=== PATIENT | female | born 1970 | race Caucasian/White ===

== ENCOUNTER → 2017-12-08 | Outpatient (CLI) | payer OTHER ==
[2017-12-08 10:59] LABS: ALT 31 U/L (9-52); AST 26 U/L (14-36)
== END | disposition home or self-care (01) ==
LOC: LABWHC1 10:03
PROVIDERS: ATTEND Podiatrist Foot & Ankle Surgery
DX: K74.60 Unspecified cirrhosis of liver (principal)
CPT/HCPCS: 36415; 84450; 84460

== ENCOUNTER → 2018-04-04 | Outpatient (CLI) | payer BC ==
--- NOTE | 2018-04-04 10:07 | MM ---
Reason for exam: screening (asymptomatic). Last mammogram was performed 2 years and 7 months ago. History: Patient is postmenopausal and has history of other cancer at age 17. Family history of breast cancer in mother at age 61 and breast cancer in grandmother. Benign excisional biopsy of the right breast, 1993. Took hormonal contraceptives for 7 years beginning at age 15. Took estrogen for 6 months beginning at age 38. Physical Findings: A clinical breast exam by your physician is recommended on an annual basis and results should be correlated with mammographic findings. MG 3D Screening Mammo W/Cad Bilateral CC and MLO view(s) were taken. Prior study comparison: September 05, 2015, bilateral MG 3d screening mammo w/cad. July 19, 2014, bilateral MG screening mammo w CAD. The breast tissue is extremely dense which could obscure a lesion on mammography. Finding: There is a 7 mm equal density (isodense), oval mass in the upper quadrant, posterior position of the right breast. ASSESSMENT: Incomplete: need additional imaging evaluation, BI-RAD 0 RECOMMENDATION: Special view mammogram of the right breast. If lesion persists on supplemental views, image directed ultrasound is recommended. [facility] will attempt to contact patient to return for supplemental views and ultrasound if indicated.
== END ==
LOC: RADMAMWWP 06:57
PROVIDERS: ATTEND Family Medicine
DX: Z12.31 Encounter for screening mammogram for malignant neoplasm of breast (principal)
CPT/HCPCS: 77063; 77067

== ENCOUNTER → 2018-04-06 | Outpatient (CLI) | payer BC ==
--- NOTE | 2018-04-06 12:22 | MM ---
Reason for exam: additional evaluation requested from abnormal screening. Last mammogram was performed less than 1 month ago. History: Patient is postmenopausal and has history of other cancer at age 17. Family history of breast cancer in mother at age 61 and breast cancer in grandmother. Benign excisional biopsy of the right breast, 1993. Took hormonal contraceptives for 7 years beginning at age 15. Took estrogen for 6 months beginning at age 38. Physical Findings: Nurse did not find any significant physical abnormalities on exam. MG 3D Work Up W/Cad RT XCCL view(s) were taken of the right breast. Prior study comparison: April 04, 2018, bilateral MG 3d screening mammo w/cad. September 05, 2015, bilateral MG 3d screening mammo w/cad. 7mm nodularity in the right breast persists on additional views. These results were verbally communicated with the patient and result sheet given to the patient on 04/06/18. ASSESSMENT: Incomplete: need additional imaging evaluation, BI-RAD 0 RECOMMENDATION: Ultrasound of the right breast.
--- NOTE | 2018-04-06 12:24 | USB ---
Reason for exam: additional evaluation requested from abnormal screening. History: Patient is postmenopausal and has history of other cancer at age 17. Family history of breast cancer in mother at age 61 and breast cancer in grandmother. Benign excisional biopsy of the right breast, 1993. Took hormonal contraceptives for 7 years beginning at age 15. Took estrogen for 6 months beginning at age 38. US Breast Workup Limited RT Right limited breast ultrasound including focal area of concern, retroareolar and axilla demonstrates no cystic or solid lesion seen greater than 0.50cm. Mammographic abnormality presumed benign lymph node. These results were verbally communicated with the patient and result sheet given to the patient on 04/06/18. ASSESSMENT: Negative, BI-RAD 1 RECOMMENDATION: Return to routine screening mammogram schedule for both breasts.
== END | disposition home or self-care (01) ==
LOC: RADMAMWWP 06:54
PROVIDERS: ATTEND Family Medicine
DX: R92.8 Other abnormal and inconclusive findings on diagnostic imaging of breast (principal)
CPT/HCPCS: 77061; 77065

== ENCOUNTER → 2018-05-18 | Outpatient (CLI) | payer BC ==
[2018-05-18 14:11] VITALS: BP 135/77; PULSE 80; RESP 18; TEMP 96.8; BMI 23.3
--- NOTE | 2018-05-18 14:34 | P.GSHP ---
History of Present Illness H&P Date: 05/18/18 Chief Complaint: abnormal mammogram The patient is a 47 year old white female status post bilateral breast mammogram performed on . This revealed a 7 mm equal density oval mass in the upper quadrant in the posterior position of the right breast. She subsequently had a diagnostic mammogram performed of this area followed by an ultrasound. The patient had persistence of the nodularity on the diagnostic mammogram. However an ultrasound of cystic or solid lesions greater than 0.5 cm were identified. The mammographic abnormality was presumed to be a benign lymph node and it was recommended the patient have a repeat bilateral mammogram in 1 year. She has a positive family history of breast caner in a maternal grandmother at 56, and her mother had DCIS at 62, and was diagnosed with bladder cancer at 68. Patient does not feel any nodules in her breast. No nipple discharge or changes. No trauma or infection in the breast. Family History: 1. mother: breast and bladder cancer 2. maternal grandmother: breast cancer Hormonal History: menarche: 14 : 2, 2 children, first at 19, breast fed: one Right ovary and tube removed at approximately 29, then subsequently a total hysterectomy with the left ovary removed for endometriosis BCP: 3 years hormones: none Past Surgical History: 1. Right ovary and tube removed at the age of 29 2. Completion hysterectomy with left ovary removed as well for endometriosis 3. Bilateral foot surgery (bunyon bilateral) 4. Bilateral knee surgery (meniscus surgery) 5. Right hand surgery Past Medical History: none Social History: smoke: none alcohol: rare drugs: none - Constitutional Constitutional: Denies chills, Denies fever - EENT Eyes: denies blurred vision, denies pain Ears: deny: decreased hearing, tinnitus Ears, nose, mouth and throat: Reports headache, Denies sore throat - Breasts Breasts: bilateral: as per HPI - Cardiovascular Cardiovascular: Denies chest pain, Denies shortness of breath - Respiratory Respiratory: Denies cough, Denies 7 - Gastrointestinal Gastrointestinal: Denies abdominal pain, Denies diarrhea, Denies nausea, Denies vomiting - Genitourinary (Female) Genitourinary: Denies dysuria, Denies hematuria - Menstruation Menstruation: Reports post hysterectomy - Musculoskeletal Musculoskeletal: Reports as per HPI - Integumentary Integumentary: Denies pruritus, Denies rash - Neurological Comment: cyst on hand Neurological: Denies numbness, Denies weakness - Psychiatric Psychiatric: Denies anxiety, Denies depression - Endocrine Endocrine: Denies fatigue, Denies weight change - Hematologic/Lymphatic Comment: none - Allergic/Immunologic Allergic/Immunologic: Reports seasonal allergies Past Medical History Past Medical History: No Reported History History of Any Multi-Drug Resistant Organisms: None Reported Past Surgical History: Hysterectomy, Orthopedic Surgery Additional Past Surgical History / Comment(s): two knee and two hand surgery,. rt breast biopsy Past Anesthesia/Blood Transfusion Reactions: No Reported Reaction Past Psychological History: No Psychological Hx Reported Smoking Status: Never smoker Past Alcohol Use History: Occasional Past Drug Use History: None Reported - Past Family History Mother Family Medical History: Cancer, Diabetes Mellitus, Hypertension Additional Family Medical History / Comment(s): bladder cancer Father Family Medical History: Diabetes Mellitus, Hyperlipidemia Medications and Allergies Home Medications Medication Instructions Recorded Confirmed Type Butalb/APAP/Caff 50-325-40Mg 1 tab PO Q4H PRN 05/18/18 05/18/18 History [Fioricet 50-325-40] Ferrous Sulfate [Feosol] 325 mg PO DAILY 05/18/18 05/18/18 History Allergies Allergy/AdvReac Type Severity Reaction Status Date / Time No Known Allergies Allergy Verified 05/18/18 14:14 Surgical - Exam Vital Signs Temp Pulse Resp BP Pulse Ox 96.8 F L 80 18 135/77 100 05/18/18 14:05 05/18/18 14:05 05/18/18 14:05 05/18/18 14:05 05/18/18 14:05 BMI 23.4 - General well developed, well nourished, no distress - Eyes normal ocular movement, no icteric - ENT no hearing loss, no congestion - Neck no masses, trachea midline - Respiratory normal respiratory effort, clear to auscultation - Cardiovascular Rhythm: regular Heart Sounds: normal: S1, S2 - Abdomen Abdomen: soft, non tender, no guarding, no rigid, no rebound - Integumentary tatoo no rash, no abnormal pigmentation - Neurologic no disoriented, no combative - Musculoskeletal normal gait, normal posture - Psychiatric oriented to time, oriented to person, oriented to place, speech is normal, memory intact Breast exam right breast: multipositional exam no masses of concern right axilla: no adenopathy of concern left breast: no masses of concern on multipositional exam left adenopathy: no adenopathy of concern Results mammogram and ultrasound reviewed Assessment and Plan Assessment: Impression: 1. Radiographic abnormality right breast believed to be benign lymph node 2. Fibrocystic breast changes 3. Family history of breast cancer in mother and maternal grandmother, patient states mother was tested for the BRCA1 gene and this was negative. The patient' s sister was also tested for the BRCA1 gene and this was negative Plan: 1. Repeat bilateral mammogram in 1 year 2. Patient to do routine breast exams monthly 3. Follow-up in 1 year for bilateral mammogram and physician exam of the breast may be done here or by marine painter Cc: Dr. Nakul Villa/Les Howard
== END | disposition home or self-care (01) ==
LOC: WWCWWP 13:13
PROVIDERS: ATTEND Surgery
DX: Z53.9 Procedure and treatment not carried out, unspecified reason (principal)

== ENCOUNTER → 2018-07-12 | Outpatient (CLI) | payer BC ==
[2018-07-12 16:41] LABS: HCT 38.1 % (34.0-46.0); HGB 12.2 gm/dL (11.4-16.0); MCH 29.4 pg (25.0-35.0); MCV 91.9 fL (80.0-100.0); Mean Platelet Volume 6.7; Platelet Count 224 k/uL (150-450); RBC 4.15 m/uL (3.80-5.40); WBC 5.8 k/uL (3.8-10.6)
[2018-07-12 16:48] LABS: Anion Gap 7 mmol/L; Blood Urea Nitrogen 29 mg/dL (7-17); Carbon Dioxide 30 mmol/L (22-30); Chloride 104 mmol/L (98-107); Glucose 74 mg/dL (74-99); Potassium 4.2 mmol/L (3.5-5.1); Sodium 141 mmol/L (137-145)
== END | disposition home or self-care (01) ==
LOC: LABPAT 15:27
PROVIDERS: ATTEND Podiatrist Foot & Ankle Surgery
DX: Z01.812 Encounter for preprocedural laboratory examination (principal)
CPT/HCPCS: 36415; 80048; 85027

== ENCOUNTER 2018-08-09 13:07 | Day surgery (SDC) | payer BC ==
[2018-08-03 15:49] VITALS: BMI 23.1
[~2018-08-09 13:07] MED LIST: LACTATED RINGERS 1,000 ML IV SCH; LIDOCAINE 1% 20 ML VIAL (10MG/ML) FOR IV START INTRADERMA PRN; ONDANSETRON 4 MG/2 ML VIAL IVP ONE; Pre Op ABX Message 1 EACH MISC MISCELLANE ONE
[2018-08-09] MEDS ORDERED: BUPIVACAINE (PF) 0.25% 30 ML VIAL SQ ONE ×2 (14:13→15:42)
[2018-08-09] MEDS ORDERED: KETAMINE 10 MG/ML 20 ML VIAL ONE (14:15)
[2018-08-09] MEDS ORDERED: PROPOFOL 10 MG/ML 20 ML VIAL IV ONE (14:15)
[2018-08-09] MEDS ORDERED: LIDOCAINE 1% INJ 10MG/ML (20 ML MDV) ONE (14:15)
[2018-08-09] MEDS ORDERED: fentaNYL (PF) 50 MCG/ML 2 ML AMP ONE (14:15)
[2018-08-09] MEDS ORDERED: MIDAZOLAM 2 MG/2 ML VIAL ONE (14:15)
[2018-08-09] MEDS ORDERED: ceFAZolin IN SWFI 2 GM/20 ML SYRINGE IVP ONE (14:38)
[2018-08-09] MEDS ORDERED: LACTATED RINGERS 1,000 ML IV ONE (15:00)
--- NOTE | 2018-08-09 16:05 | P.OP ---
Date of Procedure: 08/09/18 Preoperative Diagnosis: Hallux abductovalgus deformity right foot Postoperative Diagnosis: Same Procedure(s) Performed: Travis Jon bunionectomy right foot Anesthesia: GETA Surgeon: Harlan Boothe Description of Procedure: On the date of surgery the patient was taken the operating room in good condition placed on the operating table supine position where an IV was started and general anesthetic agents were administered Right foot and ankle were then prepped and draped in usual aseptic manner and over heavy web roll padding an ankle tourniquet was placed above the malleoli of the patient's right ankle the patient's right foot and ankle were then elevated and exsanguinated of blood and after approximately 2 minutes. A time the ankle tourniquet was inflated to approximately 250 mmHg At this time attention was directed to the dorsal aspect of the first metatarsal phalangeal joint of the right foot where an approximately 6-1/2 cm dorsal linear incision was made the incision was deepened via sharp dissection down through the level of the subcutaneous tissue layers all neurovascular structures encountered were identified isolated and were retracted and any bleeding vessels were clamped electrocauterized X was then carried deep down to level Periosteal Structures Overlying the First Metatarsal Phalangeal Joint These Were Incised Utilizing an Inverted L Incision and Underscored and Retracted from the Underlying Bone Capsule and Periosteal Structures Were Also Incised in Line with the Original Skin Incision Overlying the Base of the Proximal Phalanx and Underscored and Retracted from the Underlying Bone. Grafted at This Point in Time Utilizing Oscillating Bone Saw the Hyperostosis Present on the Medial Side of the First Metatarsal Head Was Resected Flush in Line with the Shaft of the First Metatarsal and Removed from the Surgical Site. Throughout the Surgical Procedure Copious Amounts Sterile Saline Solution Was Used To Irrigate the Surgical Site Oscillating Bone Saw Was Then Used To Perform a Transverse V Metatarsal Osteotomy at the Metaphysis Level of the First Metatarsal upon Completion of This Through And Through Osteotomy the Capital Fragment Was Displaced Laterally Impacted Back upon the Alec Created by the Osteotomy Area and 2 Crossing 0.062 K Wires Were Then Used To Fixate the Osteotomy Allograft This Point in Time Attention Was Directed to the Dorsal Aspect of the Proximal Phalanx Where a Dorsal to Plantar Wedge Osteotomy Was Performed in Such a Manner That the [place] Was Directed Laterally Though Care Was Taken Not to Disrupt the Lateral Cortex the Base of the Wedge Was Directed Medially the Encompass Wedge of Bone Measured Approximately 2 Mm at Its Widest Extent and Wedge of Bone Was Removed from the Surgical Site. To Surgical Drill Holes Were Then Fashioned at the Dorsal Medial Side of the Osteotomy in Such a Manner That They Met with Then. Utilizing Double Strength H Monofilament Stainless Steel Wire the Osteotomy Was Fixated and Anatomically Closed in Opposed Position. At This Point in Time Attention Was Directed to the Lateral Side of the Capsule of the First Metatarsal Phalangeal Joint Where a Lateral Capsulotomy Was Performed. At This Point in Time Redundant Capsule on the Medial Side of the First Metatarsal Phalangeal Joint Was Removed Erythema Was Performed. At This Point in Time Parosteal Structures Were Coaptated and Maintained Utilizing Combination of 201 3-0 Vicryl Simple Interrupted Suture Subcutaneous Tissue Layers Were Then Coaptated and Maintained Utilizing 3-0 Vicryl Simple Interrupted Suture and the Skin Was Closed Utilizing 4-0 Nylon Simple Interrupted Suture Proximally 10 ML of 0.25% Plain Marcaine Was Then Given in an Miguel Type Block to the First Ray Complex. Kerlex Fluffs Soaked in Betadine were Then Applied with Four-Inch Andreia and Four-Inch Conformer the Ankle Tourniquet to the Patient's Right Ankle Was Deflated and Adequate Hemostatic Return Was Seen in All Digits the Patient's Right Foot Specifically the Hallux Patient Tolerated the Surgery and Anesthesia Well Was Taken Recovery Room in Good Postoperative Condition
[2018-08-09 16:41] VITALS: TEMP 97
[2018-08-09] MEDS: HYDROmorphone 0.5 MG/0.5 ML SYRINGE IVP PRN ×2 (16:55→17:06)
[2018-08-09] MEDS ORDERED: ONDANSETRON 4 MG/2 ML VIAL IVP ONE (17:23)
[2018-08-09 17:57] VITALS: RESP 16
[2018-08-09] MEDS ORDERED: SCOPOLAMINE 1.5MG/72HR PATCH TRANSDERM ONE (18:24)
[2018-08-09] MEDS ORDERED: PROMETHAZINE INJ 25 MG/ML 1 ML VIAL IVPB ONE (18:26)
[2018-08-09] MEDS ORDERED: PROMETHAZINE INJ 25 MG/ML 1 ML VIAL IM ONE (18:26)
[2018-08-09 18:50] VITALS: BP 127/77; PULSE 56
== END 2018-08-09 19:30 | disposition home or self-care (01) ==
LOC: OR 13:07
PROVIDERS: ATTEND Podiatrist Foot & Ankle Surgery
DX: M20.11 Hallux valgus (acquired), right foot (principal); Z88.5 Allergy status to narcotic agent; G43.909 Migraine, unspecified, not intractable, without status migrainosus; Z79.891 Long term (current) use of opiate analgesic
CPT/HCPCS: 28299; J2250; J2550; J2405; J2001; J3010; J2704; J1170; J0690; 88304; 88311

== ENCOUNTER → 2019-05-10 | Outpatient (CLI) | payer BC ==
--- NOTE | 2019-05-11 13:15 | MM ---
Reason for exam: screening (asymptomatic). Last mammogram was performed 1 year and 1 month ago. History: Patient is postmenopausal and has history of other cancer at age 17. Family history of breast cancer in mother at age 61 and breast cancer in grandmother. Benign excisional biopsy of the right breast, 1993. Took hormonal contraceptives for 7 years beginning at age 15. Took estrogen for 6 months beginning at age 38. Physical Findings: A clinical breast exam by your physician is recommended on an annual basis and results should be correlated with mammographic findings. MG 3D Screening Mammo W/Cad Bilateral CC and MLO view(s) were taken. Prior study comparison: April 06, 2018, right breast MG 3d work up w/cad RT. April 04, 2018, bilateral MG 3d screening mammo w/cad. The breast tissue is extremely dense which could obscure a lesion on mammography. No suspicious abnormality. No significant changes when compared with prior studies. ASSESSMENT: Negative, BI-RAD 1 RECOMMENDATION: Routine screening mammogram of both breasts in 1 year.
== END | disposition home or self-care (01) ==
LOC: RADMAMWWP 06:45
PROVIDERS: ATTEND Family Medicine
DX: Z12.31 Encounter for screening mammogram for malignant neoplasm of breast (principal)
CPT/HCPCS: 77063; 77067

== ENCOUNTER → 2020-02-20 | Outpatient (CLI) | payer BC ==
[2020-02-20 10:47] VITALS: BP 107/66; PULSE 76; RESP 97; TEMP 98.2
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
== END | disposition home or self-care (01) ==
LOC: PNWHC3 10:17
PROVIDERS: ATTEND Anesthesiology
DX: R51 Headache (principal); M54.81 Occipital neuralgia; Z88.5 Allergy status to narcotic agent; Z79.899 Other long term (current) drug therapy
CPT/HCPCS: 99211

== ENCOUNTER 2020-03-25 06:02 | Day surgery (SDC) | payer BC ==
[~2020-03-25 06:02] MED LIST changes: -LIDOCAINE 1% 20 ML VIAL (10MG/ML) FOR IV START INTRADERMA PRN; -ONDANSETRON 4 MG/2 ML VIAL IVP ONE; -Pre Op ABX Message 1 EACH MISC MISCELLANE ONE
[2020-03-25 06:21] VITALS: TEMP 97.2
[2020-03-25] MEDS ORDERED: methylPREDNISolone ACETATE 40 MG/ML 1 ML VIAL ONE (06:53)
[2020-03-25] MEDS ORDERED: MIDAZOLAM 2 MG/2 ML VIAL ONE (06:53)
[2020-03-25] MEDS ORDERED: IOPAMIDOL M200 10 ML VIAL ONE (06:53)
[2020-03-25] MEDS ORDERED: fentaNYL (PF) 50 MCG/ML 2 ML AMP ONE (06:53)
[2020-03-25] MEDS ORDERED: IV FLUID CONTINUATION 850 ML IV ONE (07:04)
--- NOTE | 2020-03-25 07:04 | P.PCN ---
Date of Procedure: 03/25/20 Procedure(s) Performed: Preoperative diagnoses= 1- Left Greater occipital neuralgia. 2-headache Postoperative diagnoses= same as preoperative diagnosis. Procedure= Left Greater occipital nerve block Anesthesia= moderate sedation with Versed 2 mg and fentanyl 50 micrograms . Estimated blood loss=minimal. Procedure indication= the patient had a history of severe chronic neck pain ,and headache, diagnosed with occipital neuralgia exam was positive for severe tenderness over the occipital nerve (Left ), she will be a good candidate occipital nerve block, patient failed conservative management Procedure description= the patient was seen and identified in the preoperative holding area, risks and benefits and alternative of the procedure and possible complications discussed with the patient, and he agreed with the preceding, patient signed the consent, an IV was started, and vital signs were monitored and were stable throughout the procedure, patient was placed in the sitting position or table and the neck area was prepped and draped with a sterile fashion, vital signs were closely monitored during the procedure, 25-gauge needle advanced 1 inch lateral to the occipital protuberance on the Left side, at the location of the Left occipital nerve , then after negative aspiration for heme and CSF and there was no paresthesia during the injection, 5 ml of Robivacaine 0.5% and 40 mg of Depo-Medrol injected after negative aspiration, the needle removed. Patient tolerated the procedure well without any complication, The patient returned to supine position after the back was cleaned and a Band- Aid applied, the patient transported to recovery room in stable condition and he was monitored for 30 minutes before he was discharged home and then patient was reexamined before going home and patient was discharged in stable condition and patient will follow up with the pain clinic in a few weeks.
[2020-03-25 07:13] VITALS: RESP 16
[2020-03-25 07:24] VITALS: BP 112/73; PULSE 61
[2020-03-25] MEDS ORDERED: ROPIVACAINE 5MG/ML 20ML VIAL ONE (09:53)
== END 2020-03-25 07:30 | disposition home or self-care (01) ==
LOC: ORPAIN 06:02
PROVIDERS: ATTEND Specialist
DX: G89.29 Other chronic pain (principal); M54.81 Occipital neuralgia; Z90.710 Acquired absence of both cervix and uterus; Z88.5 Allergy status to narcotic agent
CPT/HCPCS: 64405; J2250; J1030; J3010; Q9966

== ENCOUNTER 2020-04-10 06:04 | Day surgery (SDC) | payer BC ==
[2020-04-08 08:49] VITALS: BMI 22.4
[2020-04-10 06:22] VITALS: TEMP 97.3
[2020-04-10] MEDS: LACTATED RINGERS 1,000 ML IV SCH ×2 (06:29→06:57)
[2020-04-10] MEDS ORDERED: LIDOCAINE 1% (10MG/ML) FOR IV START INTRADERMA ONE (06:29)
[2020-04-10] MEDS ORDERED: MIDAZOLAM 2 MG/2 ML VIAL ONE (06:52)
[2020-04-10] MEDS ORDERED: ROPIVACAINE 5MG/ML 20ML VIAL ONE (06:52)
[2020-04-10] MEDS ORDERED: DEXAMETHASONE SOD PHOSPHATE 10 MG/ML 1 ML VIAL ONE (06:52)
[2020-04-10] MEDS ORDERED: fentaNYL (PF) 50 MCG/ML 2 ML AMP ONE (06:52)
--- NOTE | 2020-04-10 07:06 | P.PCN ---
Date of Procedure: 04/10/20 Surgeon: Cruz Valdes Pathology: none sent Condition: stable Disposition: PACU Description of Procedure: Preoperative diagnoses= 1- Left Greater occipital neuralgia. 2-headache Postoperative diagnoses= same as preoperative diagnosis. Procedure= Left Greater occipital nerve block Anesthesia= moderate sedation with Versed 2 mg and fentanyl 50 micrograms . Estimated blood loss=minimal. Procedure indication= the patient had a history of severe chronic neck pain ,and headache, diagnosed with occipital neuralgia exam was positive for severe tenderness over the occipital nerve (Left ), she will be a good candidate occipital nerve block, patient failed conservative management Procedure description= the patient was seen and identified in the preoperative holding area, risks and benefits and alternative of the procedure and possible complications discussed with the patient, and he agreed with the preceding, patient signed the consent, an IV was started, and vital signs were monitored and were stable throughout the procedure, patient was placed in the sitting position or table and the neck area was prepped and draped with a sterile fashion, vital signs were closely monitored during the procedure, 25-gauge needle advanced 1 inch lateral to the occipital protuberance on the Left side, lateral to the occipital artery ,at the location of the Left occipital nerve , then after negative aspiration for heme and CSF and there was no paresthesia during the injection, 3 ml of Robivacaine 0.5% and 5 mg of decadron injected after negative aspiration, the needle removed. Patient tolerated the procedure well without any complication, The patient returned to supine position after the back was cleaned and a Band- Aid applied, the patient transported to recovery room in stable condition and he was monitored for 30 minutes before he was discharged home and then patient was reexamined before going home and patient was discharged in stable condition and patient will follow up with the pain clinic in a few weeks.
[2020-04-10 07:12] VITALS: RESP 18
[2020-04-10 07:29] VITALS: BP 121/77; PULSE 55
[2020-04-10] MEDS ORDERED: IV FLUID CONTINUATION 1,000 ML IV ONE (07:34)
== END 2020-04-10 07:45 | disposition home or self-care (01) ==
LOC: ORPAIN 06:04
PROVIDERS: ATTEND Anesthesiology
DX: G89.29 Other chronic pain (principal); M54.81 Occipital neuralgia; Z90.710 Acquired absence of both cervix and uterus; Z88.5 Allergy status to narcotic agent
CPT/HCPCS: 64405; J2250; J1100; J3010; J2795

== ENCOUNTER → 2020-05-05 | Outpatient (CLI) | payer BC ==
[2020-05-05 13:49] VITALS: BP 117/75; PULSE 65; RESP 14; TEMP 98.1
--- NOTE | 2020-05-05 14:15 | P.PN ---
Subjective Progress Note Date: 05/05/20 This is a 49-year-old lady with history of occipital headache for which she had 2 occipital nerve block on the left side. The patient has not felt any headache since her second occipital nerve block. The patient is very happy with the results of the injection. She still takes Topamax for prophylaxis for migraine headache. Patient denies new-onset weakness, bowel/bladder incontinence, or any other signs or symptoms of cauda equina syndrome. There are no signs of acute intoxication, and no indications of medication diversion or overuse. In addition to above, 13-point review of systems is also negative for chest pain, shortness of breath, changes in vision, changes in hearing, new onset weakness, abdominal pain, diarrhea, extreme fatigue, malaise, fever, skin changes, homicidal or suicidal ideation, or bowel or bladder incontinence. Vital Signs: Reviewed in EMR Gen: AAOx3, NAD HEENT: PERRLA,hearing grossly normal Pulm: resp unlabored Neck: supple, trachea midline There is no occipital or cervical paravertebral tenderness on the left side Neuro: CN II-XII grossly intact, Imaging: Reviewed in EMR/chart Assessment: Migraine headache Occipital neuralgia resolved after 2 occipital nerve blocks Plan: 1. Explanation: Opioid and psychological risk scores were reviewed. Diagnoses, prognoses, and multiple treatment options including but not limited to physical therapy, interventional therapies, adjuvant medical therapies, narcotic me dication therapies, and surgery were discussed with the patient and all questions were answered to the patient's satisfaction. 2. Opioid agreement: Signed with the patient and the patient is warned not to use opioids while driving or before driving and not to combine opioids with benzodiazepines or alcohol. 3. Counseling: The patient was counseled extensively on SMOKING CESSATION, BODY MASS INDEX, EXERCISE. Specifically, the patient was instructed regarding the importance of smoking cessation, obesity, and exercise in the context of both chronic pain and overall health. 4. Procedures: None 5. Consultations: None 6. Investigations: None 7. Medications: Continue current treatment 8. Disposition: Return to clinic as necessary 9. Maps were reviewed and were appropriate. Objective - Vital Signs Vital signs: Vital Signs Temp 98.1 F 05/05/20 13:40 Pulse 65 05/05/20 13:40 Resp 14 05/05/20 13:40 BP 117/75 05/05/20 13:40 Pulse Ox 97 05/05/20 13:40 Intake & Output 05/04/20 05/05/20 05/05/20 18:59 06:59 18:59 Weight 60.781 kg
== END | disposition home or self-care (01) ==
LOC: PNWHC3 13:28
PROVIDERS: ATTEND Anesthesiology
DX: G43.909 Migraine, unspecified, not intractable, without status migrainosus (principal)
CPT/HCPCS: 99211

== ENCOUNTER → 2020-07-10 | Outpatient (CLI) | payer BC ==
--- NOTE | 2020-07-11 13:48 | MM ---
Reason for exam: screening (asymptomatic). Last mammogram was performed 1 year and 2 months ago. History: Patient is postmenopausal and has history of other cancer at age 17. Family history of breast cancer in mother at age 61 and breast cancer in grandmother. Benign excisional biopsy of the right breast, 1993. Took hormonal contraceptives for 7 years beginning at age 15. Took estrogen for 6 months beginning at age 38. Physical Findings: A clinical breast exam by your physician is recommended on an annual basis and results should be correlated with mammographic findings. MG 3D Screening Mammo W/Cad Bilateral CC and MLO view(s) were taken. Prior study comparison: May 10, 2019, bilateral MG 3d screening mammo w/cad. April 06, 2018, right breast MG 3d work up w/cad RT. There is chronic nodularity in the left breast. No significant changes when compared with prior studies. ASSESSMENT: Benign, BI-RAD 2 RECOMMENDATION: Routine screening mammogram of both breasts in 1 year.
== END | disposition home or self-care (01) ==
LOC: RADMAMWWP 07:00
PROVIDERS: ATTEND Family Medicine
DX: Z12.31 Encounter for screening mammogram for malignant neoplasm of breast (principal)
CPT/HCPCS: 77063; 77067

== ENCOUNTER 2021-11-11 09:40 | Day surgery (SDC) | payer BC ==
[2021-11-09 10:51] VITALS: BMI 22.2
[2021-11-11 10:44] VITALS: RESP 16; TEMP 97.4
[2021-11-11] MEDS ORDERED: PROPOFOL 10 MG/ML 20 ML VIAL IV ONE (10:58)
--- NOTE | 2021-11-11 11:16 | P.PCN ---
Date of Procedure: 11/11/21 Procedure(s) Performed: BRIEF HISTORY: Patient is a 50-year-old pleasant female scheduled for an elective colonoscopy as a part of screening for colorectal neoplasia. PROCEDURE PERFORMED: Colonoscopy with snare polypectomy and Endo Clip placement. PREOPERATIVE DIAGNOSIS: Screening for colon cancer. IV sedation per Anesthesia. PROCEDURE: After informed consent was obtained, the patient, was brought into the endoscopy unit. IV sedation was administered by Anesthesia under continuous monitoring. Digital rectal examination was normal. Initially the Olympus CF-160 flexible video colonoscope was then inserted in the rectum, gradually advanced into the cecum without any difficulty. Careful examination was performed as the scope was gradually being withdrawn. Ileocecal valve and the appendiceal orifice were visualized and appeared normal. Prep was excellent. Mucosa of the cecum, the normal. In the ascending colon there was a 1.75 mm broad-based polyp that was removed by snare polypectomy followed by Endo Clip placement to prevent post-polypectomy bleed. Rest of the ascending colon, transverse colon, descending colon, sigmoid colon, and rectum appeared normal. Retroflexion was performed in the rectum and no lesions were seen. The patient tolerated the procedure well. IMPRESSION: 1.5 cm broad-based ascending colon polyp status post polypectomy followed by Endo Clip placement Rest of the colon appeared normal RECOMMENDATIONS: Findings of this examination were discussed with the patient as well as her family. She was advised to follow with the biopsy results. If the biopsy reveals adenoma she can have a repeat colonoscopy in 3 years.
[2021-11-11 11:37] VITALS: BP 123/81; PULSE 65
== END 2021-11-11 12:02 | disposition home or self-care (01) ==
LOC: ORWHC2ENDO 09:40
PROVIDERS: ATTEND Internal Medicine Gastroenterology
DX: Z12.11 Encounter for screening for malignant neoplasm of colon (principal); D12.2 Benign neoplasm of ascending colon; G43.909 Migraine, unspecified, not intractable, without status migrainosus; M54.81 Occipital neuralgia; Z85.41 Personal history of malignant neoplasm of cervix uteri; Z79.899 Other long term (current) drug therapy; Z88.5 Allergy status to narcotic agent
CPT/HCPCS: 88305; 45385; J2704; 45382

== ENCOUNTER → 2022-08-06 | Outpatient (CLI) | payer BC ==
--- NOTE | 2022-08-09 07:58 | MM ---
Reason for Exam: Screening (asymptomatic). Last screening mammogram was performed 12 month(s) ago. Patient History: Menarche at age 13. First Full-Term at age 19. Left ovary removed at age 38. Right ovary removed at age 29. Hysterectomy at age 29. Postmenopausal. Other cancer, age 17. Estrogen for 6 months starting at age 38. Hormonal Contraceptives for 7 years from age 15 until age 22. 1994, Benign Excisional Biopsy on the right side. Maternal grandmother had breast cancer. Mother had breast cancer, age 61. Risk Values: Sara 5 year model risk: 2.2%. NCI Lifetime model risk: 17.0%. Prior Study Comparison: 04/04/2018 Bilateral Screening Mammogram, [facility]. 04/06/2018 Right Diagnostic Mammogram, [facility] 05/10/2019 Bilateral Screening Mammogram, [facility]. 07/10/2020 Bilateral Screening Mammogram, [facility]. 07/28/2021 Bilateral Screening Mammogram, [facility]. Tissue Density: The breast tissue is heterogeneously dense. This may lower the sensitivity of mammography. Findings: Analyzed By CAD. There is no suspicious group of microcalcifications or new suspicious mass in either breast. Chronic nodularity within left breast. Overall Assessment: Benign, BI-RAD 2 Management: Screening Mammogram of both breasts in 1 year. A clinical breast exam by your physician is recommended on an annual basis and results should be correlated with mammographic findings. Electronically signed and approved by: Emilio Cabrera D.O.
== END | disposition home or self-care (01) ==
LOC: RADMAMWWP 07:01
PROVIDERS: ATTEND Family Medicine
DX: Z12.31 Encounter for screening mammogram for malignant neoplasm of breast (principal); Z78.0 Asymptomatic menopausal state; Z80.3 Family history of malignant neoplasm of breast
CPT/HCPCS: 77063; 77067

== ENCOUNTER → 2023-10-07 | Outpatient (CLI) | payer BC ==
--- NOTE | 2023-10-10 12:02 | MM ---
Reason for Exam: Screening (asymptomatic). Last mammogram was performed 1 year(s) and 2 month(s) ago. Patient History: Menarche at age 13. First Full-Term at age 19. Left ovary removed at age 38. Right ovary removed at age 29. Hysterectomy at age 29. Postmenopausal. Other cancer, age 17. Estrogen for 6 months starting at age 38. Hormonal Contraceptives for 7 years from age 15 until age 22. 1993, Benign Excisional Biopsy on the right side. Maternal grandmother had breast cancer. Mother had breast cancer, age 61. Risk Values: Sara 5 year model risk: 2.3%. NCI Lifetime model risk: 16.8%. Prior Study Comparison: 07/10/2020 Bilateral Screening Mammogram, [facility]. 07/28/2021 Bilateral Screening Mammogram, [facility]. 08/06/2022 Bilateral MG 3D screening mammo w/cad, [facility]. Tissue Density: The breasts are heterogeneously dense, which may obscure small masses. Findings: Analyzed By CAD. There is no suspicious group of microcalcifications or new suspicious mass. Overall Assessment: Negative, BI-RAD 1 Management: Screening Mammogram of both breasts in [address] [facility] will attempt to contact patient to return for supplemental views and ultrasound if indicated. Patient should continue monthly self-breast exams. A clinical breast exam by your physician is recommended on an annual basis. This exam should not preclude additional follow-up of suspicious palpable abnormalities. Note on Sara scores and lifetime risk: 1. A Sara score greater than 3% is considered moderate risk. If this is the case, consider specialist referral to assess eligibility for a risk reducing agent. 2. If overall lifetime risk for the development of breast cancer is 20% or higher, the patient may qualify for future screening with alternating mammogram and breast MRI. Electronically signed and approved by: Dontrell Fairbanks DO
== END | disposition home or self-care (01) ==
LOC: RADMAMWWP 07:00
PROVIDERS: ATTEND Family Medicine
DX: Z12.31 Encounter for screening mammogram for malignant neoplasm of breast (principal); Z78.0 Asymptomatic menopausal state; Z80.3 Family history of malignant neoplasm of breast
CPT/HCPCS: 77063; 77067

== ENCOUNTER → 2024-10-17 | Outpatient (CLI) | payer BC ==
--- NOTE | 2024-10-17 10:55 | MM ---
Reason for Exam: Screening (asymptomatic). Last screening mammogram was performed 12 month(s) ago. Patient History: Menarche at age 13. First Full-Term at age 19. Left ovary removed at age 38. Right ovary removed at age 29. Hysterectomy at age 29. Postmenopausal. Other cancer, age 17. Estrogen for 6 months starting at age 38. Hormonal Contraceptives for 7 years from age 15 until age 22. 1993, Benign Excisional Biopsy on the right side. Maternal grandmother had breast cancer. Mother had breast cancer, age 61. Risk Values: Sara 5 year model risk: 2.3%. NCI Lifetime model risk: 16.5%. Prior Study Comparison: 07/28/2021 Bilateral Screening Mammogram, [facility]. 08/06/2022 Bilateral MG 3D screening mammo w/cad, [facility]. 10/07/2023 Bilateral MG 3D screening mammo w/cad, [facility]. Tissue Density: The breasts are extremely dense, which lowers the sensitivity of mammography. Findings: Analyzed By CAD. There is no suspicious group of microcalcifications or new suspicious mass in either breast. Overall Assessment: Benign, BI-RAD 2 Management: Screening Mammogram of both breasts in 1 year. . Patient should continue monthly self-breast exams. A clinical breast exam by your physician is recommended on an annual basis. This exam should not preclude additional follow-up of suspicious palpable abnormalities. Note on Sara scores and lifetime risk: 1. A Sara score greater than 3% is considered moderate risk. If this is the case, consider specialist referral to assess eligibility for a risk reducing agent. 2. If overall lifetime risk for the development of breast cancer is 20% or higher, the patient may qualify for future screening with alternating mammogram and breast MRI. [facility], , 10/17/2024 10:52 AM. Electronically signed and approved by: Ray Peraza M.D. Radiologis
== END | disposition home or self-care (01) ==
LOC: RADMAMWWP 06:55
PROVIDERS: ATTEND Family Medicine
DX: Z12.31 Encounter for screening mammogram for malignant neoplasm of breast (principal); R92.343 Mammographic extreme density, bilateral breasts; Z78.0 Asymptomatic menopausal state; Z80.3 Family history of malignant neoplasm of breast; Z92.0 Personal history of contraception
CPT/HCPCS: 77063; 77067

== ENCOUNTER 2024-12-11 10:18 | Day surgery (SDC) | payer BC ==
[~2024-12-11 10:18] MED LIST changes: -LACTATED RINGERS 1,000 ML IV SCH; +LIDOCAINE 1% (10MG/ML) FOR IV START INTRADERMA PRN; +ONDANSETRON 4 MG/2 ML VIAL IVP PRN
[2024-12-11] MEDS: IV FLUID CONTINUATION 1,000 ML IV ONE ×2 (10:54→11:57)
[2024-12-11 11:06] VITALS: RESP 16; TEMP 97.1
[2024-12-11] MEDS: LACTATED RINGERS 1,000 ML IV SCH (11:06)
[2024-12-11] MEDS ORDERED: PROPOFOL 10 MG/ML 20 ML VIAL IV ONE (11:58)
--- NOTE | 2024-12-11 12:14 | P.PCN ---
Date of Procedure: 12/11/24 Procedure(s) Performed: BRIEF HISTORY: Patient is a 53-year-old pleasant white female scheduled for an elective colonoscopy as a part of screening for colon cancer. PROCEDURE PERFORMED: Colonoscopy with snare polypectomy. PREOPERATIVE DIAGNOSIS: Screening for colon cancer. IV sedation per Anesthesia. PROCEDURE: After informed consent was obtained, the patient, was brought into the endoscopy unit. IV sedation was administered by Anesthesia under continuous monitoring. Digital rectal examination was normal. Initially the Olympus CF-160 flexible video colonoscope was then inserted in the rectum, gradually advanced into the cecum without any difficulty. Careful examination was performed as the scope was gradually being withdrawn. Ileocecal valve and the appendiceal orifice were visualized and appeared normal. Prep was excellent. Mucosa of the cecum, ascending colon, transverse colon, descending colon, appeared normal. The distal sigmoid colon there was a 7 mm polyp that was removed by cold snare polypectomy. Rest of the sigmoid colon, and rectum appeared normal. Retroflexion was performed in the rectum and no lesions were seen. The patient tolerated the procedure well. IMPRESSION: 7 mm distal sigmoid colon polyp status post cold snare polypectomy Rest of the colon appeared normal RECOMMENDATIONS: Findings of this examination were discussed with the patient as well as a family. She was advised to follow the biopsy results. If the biopsy was adenoma she can have repeat colonoscopy in 5 years..
[2024-12-11 12:38] VITALS: BP 128/78; PULSE 65
== END 2024-12-11 12:57 | disposition home or self-care (01) ==
LOC: ORWHC2ENDO 10:18
PROVIDERS: ATTEND Internal Medicine Gastroenterology
DX: Z12.11 Encounter for screening for malignant neoplasm of colon (principal); D12.5 Benign neoplasm of sigmoid colon; M19.90 Unspecified osteoarthritis, unspecified site; G40.909 Epilepsy, unspecified, not intractable, without status epilepticus; Z79.1 Long term (current) use of non-steroidal anti-inflammatories (NSAID); Z88.5 Allergy status to narcotic agent; Z90.710 Acquired absence of both cervix and uterus; Z98.890 Other specified postprocedural states; Z79.899 Other long term (current) drug therapy
CPT/HCPCS: 88305; 45385; J2704